=== PATIENT | male | born 1985 | race Caucasian/White ===

== ENCOUNTER 2024-08-04 14:00 | Emergency (ER) | payer MEDICAID, OTHER ==
[~2024-08-04] VITALS: Ht 180.3 cm; Wt 91.1 kg
[~2024-08-04 14:00] MED LIST: LURA120T
[2024-08-04 14:02] VITALS: BP 109/77; PULSE 100; TEMP 98.8; O2SAT 97
[2024-08-04 16:49] VITALS: RESP 18
== END 2024-08-04 16:51 | disposition home or self-care (01) ==
LOC: ER 14:01
DX: F15.10 Other stimulant abuse, uncomplicated (principal); Z88.8 Allergy status to other drugs, medicaments and biological substances; F12.90 Cannabis use, unspecified, uncomplicated; R53.1 Weakness
CPT/HCPCS: 99281

== ENCOUNTER 2024-08-05 11:55 | Emergency (ER) | payer MEDICAID, MEDICARE, OTHER ==
[~2024-08-05] VITALS: Ht 180.3 cm; Wt 90.0 kg
[2024-08-05 13:50] LABS: BILIRUBIN,URINE NEGATIVE (Neg); CLARITY,URINE SLIGHTLY CLOUDY (Clear); COLOR,URINE YELLOW (Yellow); GLUCOSE, URINE NEGATIVE (Neg); KETONES,URINE NEGATIVE (Neg); LEUKOCYTE ESTERASE ,URINE NEGATIVE (Neg); NITRITES, URINE NEGATIVE (Neg); OCCULT BLOOD,URINE NEGATIVE (Neg); PROTEIN,URINE NEGATIVE (Neg)
[2024-08-05 13:52] LABS: UA COLLECTION TYPE CLN CATCH MIDSTREAM
[2024-08-05 13:53] LABS: URINE AMPHETAMINE SCREEN POSITIVE (Neg); URINE BARBITUATE SCREEN NEGATIVE (Neg); URINE BENZODIAZEPINES SCREEN NEGATIVE (Neg); URINE CANNABINOID SCREEN POSITIVE (Neg); URINE COCAINE SCREEN NEGATIVE (Neg); URINE METHADONE SCREEN NEGATIVE (Neg); URINE OPIATE SCREEN NEGATIVE (Neg); URINE PHENCYCLIDINE SCREEN NEGATIVE (Neg)
[2024-08-05 14:00] LABS: RBC,URINE NONE SEEN /HPF (0-2); WBC,URINE 0-4 /HPF (0-4)
[2024-08-05 14:01] LABS: AMORPHOUS URATES 3+; BACTERIA,URINE FEW /HPF (Neg); CAL OXALATE CRYSTALS 1+ /HPF (NEGATIVE); MUCUS STRANDS NONE SEEN /LPF (Neg); SQUAMOUS EPITHELIAL CELL,UR FEW /LPF (FEW)
[2024-08-05 14:23] LABS: BASOPHILS % (AUTO) 0.4 % (0-1); EOSINOPHILS # (AUTO) 0.1 X10'3 (0-0.9); EOSINOPHILS % (AUTO) 1.8 % (0-6); HEMATOCRIT 41.4 % (42.0-52.0); HEMOGLOBIN 13.7 g/dl (14.0-17.9); LYMPHOCYTES # (AUTO) 1.8 X10'3 (1.1-4.8); LYMPHOCYTES % (AUTO) 25.5 % (21-51); MEAN CORPUSCULAR HEMOGLOBIN 26.4 PG (27.0-31.0); MEAN CORPUSCULAR HGB CONC 33.1 g/dL (33.0-36.5); MEAN PLATELET VOLUME 7.3 FL (7.4-10.4); MONOCYTES # (AUTO) 0.5 X10'3 (0-0.9); MONOCYTES % (AUTO) 6.8 % (2-12); NEUTROPHILS # (AUTO) 4.5 X10'3 (1.8-7.7); NEUTROPHILS % (AUTO) 65.5 % (42-75); PLATELET COUNT 264 X10'3 (140-440); RED BLOOD COUNT 5.17 X10'6 (4.70-6.10); RED CELL DISTRIBUTION WIDTH 16.6 % (11.5-14.5); WHITE BLOOD COUNT 6.9 X10'3 (4.5-11.0)
[2024-08-05 14:47] LABS: ALBUMIN 3.1 G/DL (3.4-5.0); ANION GAP 6 (8-16); BLOOD UREA NITROGEN 10 MG/DL (7-18); BUN/CREATININE RATIO 13.3 (10.0-20.0); CALCIUM 8.5 MG/DL (8.5-10.1); CHLORIDE 107 MMOL/L (99-107); CREATININE 0.75 MG/DL (0.60-1.10); ETHANOL < 10 MG/DL (<10); GLUCOSE 118 MG/DL (70-104); SODIUM 140 MMOL/L (135-145); THYROID STIMULATING HORMONE 0.18 ulU/ml (0.34-4.50); eCRCL 139 ML/MIN; eGFR > 90 ML/MIN
[2024-08-05 15:43] LABS: FREE T4 (FREE THYROXINE) 0.67 NG/DL (0.73-1.40)
[2024-08-06] MEDS: lurasidone 60mg tablet PO SCH (08:00)
[2024-08-06 17:38] VITALS: BP 121/78; PULSE 16; TEMP 98.8; O2SAT 97
[2024-08-06 19:13] VITALS: RESP 16
== END 2024-08-06 19:54 ==
LOC: ER 11:55
DX: F99 Mental disorder, not otherwise specified (principal); F31.9 Bipolar disorder, unspecified; R94.6 Abnormal results of thyroid function studies; F12.90 Cannabis use, unspecified, uncomplicated; Z88.8 Allergy status to other drugs, medicaments and biological substances; Z20.822 Contact with and (suspected) exposure to COVID-19
CPT/HCPCS: 36415; 80048; 80305; 81001; 84439; 84443; 85025; 87811; 99285; G0480; 80320

== ENCOUNTER 2024-08-22 17:46 | Inpatient (IN) | payer MEDICAID, MEDICARE ==
[~2024-08-22] VITALS: Ht 180.3 cm; Wt 93.4 kg
[2024-08-22] MEDS ORDERED: FLUO40CA10 PO (19:17)
[2024-08-22 19:20] LABS: BASOPHILS % (AUTO) 0.5 % (0-1); EOSINOPHILS # (AUTO) 0.2 X10'3 (0-0.9); EOSINOPHILS % (AUTO) 1.7 % (0-6); HEMOGLOBIN 15.1 g/dl (14.0-17.9); LYMPHOCYTES # (AUTO) 2.1 X10'3 (1.1-4.8); LYMPHOCYTES % (AUTO) 19.7 % (21-51); MEAN CORPUSCULAR HEMOGLOBIN 26.6 PG (27.0-31.0); MEAN CORPUSCULAR HGB CONC 33.5 g/dL (33.0-36.5); MEAN CORPUSCULAR VOLUME 79.3 FL (78-98); MEAN PLATELET VOLUME 7.3 FL (7.4-10.4); MONOCYTES # (AUTO) 0.6 X10'3 (0-0.9); NEUTROPHILS # (AUTO) 7.7 X10'3 (1.8-7.7); NEUTROPHILS % (AUTO) 72.1 % (42-75); PLATELET COUNT 316 X10'3 (140-440); RED BLOOD COUNT 5.67 X10'6 (4.70-6.10); RED CELL DISTRIBUTION WIDTH 17.6 % (11.5-14.5); WHITE BLOOD COUNT 10.7 X10'3 (4.5-11.0)
[2024-08-22 19:25] LABS: BILIRUBIN,URINE NEGATIVE (Neg); CLARITY,URINE CLEAR (Clear); COLOR,URINE YELLOW (Yellow); GLUCOSE, URINE NEGATIVE (Neg); KETONES,URINE NEGATIVE (Neg); LEUKOCYTE ESTERASE ,URINE NEGATIVE (Neg); NITRITES, URINE NEGATIVE (Neg); OCCULT BLOOD,URINE NEGATIVE (Neg); PROTEIN,URINE NEGATIVE (Neg); UROBILINOGEN,URINE 0.2 E.U/dL (0.2-1.0)
[2024-08-22 19:36] LABS: UA COLLECTION TYPE VOIDED
[2024-08-22 19:39] LABS: URINE AMPHETAMINE SCREEN NEGATIVE (Neg); URINE BARBITUATE SCREEN NEGATIVE (Neg); URINE BENZODIAZEPINES SCREEN NEGATIVE (Neg); URINE CANNABINOID SCREEN NEGATIVE (Neg); URINE COCAINE SCREEN NEGATIVE (Neg); URINE METHADONE SCREEN NEGATIVE (Neg); URINE OPIATE SCREEN NEGATIVE (Neg); URINE PHENCYCLIDINE SCREEN NEGATIVE (Neg)
[2024-08-22 19:42] LABS: ALBUMIN 3.5 G/DL (3.4-5.0); ANION GAP 9 (8-16); BLOOD UREA NITROGEN 13 MG/DL (7-18); BUN/CREATININE RATIO 12.6 (10.0-20.0); CALCIUM 8.9 MG/DL (8.5-10.1); CHLORIDE 106 MMOL/L (99-107); CREATININE 1.03 MG/DL (0.60-1.10); ETHANOL < 10 MG/DL (<10); GLUCOSE 120 MG/DL (70-104); POTASSIUM 3.7 MMOL/L (3.5-5.1); SODIUM 142 MMOL/L (135-145); THYROID STIMULATING HORMONE 1.36 ulU/ml (0.34-4.50); TOTAL CARBON DIOXIDE 27.4 MMOL/L (24-32); eCRCL 102 ML/MIN; eGFR 80 ML/MIN
[2024-08-22] MEDS: FLUoxetine 20mg capsule PO SCH (19:53)
[2024-08-23] MEDS ORDERED: loperamide 2mg capsule PO PRN (11:55)
[2024-08-23] MEDS ORDERED: acetaminophen 325mg tablet PO PRN ×2 (11:55)
[2024-08-23] MEDS ORDERED: magnesium hydroxide 30ml (MOM) UD suspension PO PRN (11:55)
[2024-08-23] MEDS: NICOTINE POLACRILEX 2 MG LOZENGE BC PRN (13:42)
[2024-08-23 19:00] VITALS: RESP 20; O2SAT 97
[2024-08-23 19:44] VITALS: BP 118/77; PULSE 74; RESP 20; TEMP 98.7
[2024-08-24 07:00] VITALS: RESP 16; O2SAT 97
[2024-08-24] MEDS: nicotine 21mg patch - 24 hr TD SCH (07:57)
[2024-08-24 08:00] VITALS: BP 114/70; PULSE 80; RESP 16; TEMP 98.1; O2SAT 97
[2024-08-24] MEDS ORDERED: hydrOXYzine 25 MG tablet PO PRN (08:40)
[2024-08-24 08:52] LABS: CHOL/HDL RATIO 3.5 (0.00-4.99); CHOLESTEROL 163 MG/DL (0-200); HDL CHOLESTEROL 46 MG/DL (35-60); LDL CHOLESTEROL 87 MG/DL (50-100); TRIGLYCERIDES 286 MG/DL (20-135)
[2024-08-24] MEDS: aripiprazole 10MG tablet PO SCH (10:16)
[2024-08-24 19:00] VITALS: RESP 16; O2SAT 96
[2024-08-24 20:32] VITALS: BP 115/73; PULSE 83; RESP 14; TEMP 97.6; O2SAT 97
[2024-08-24] MEDS: mag hydrox/Alum hydrox/simeth 30ml oral suspension PO PRN (20:40)
[2024-08-25 07:20] VITALS: BP 113/82; PULSE 73; RESP 16; TEMP 97.4; O2SAT 97
[2024-08-25] MEDS ORDERED: aripiprazole 10MG tablet PO SCH (08:00)
[2024-08-25] MEDS: pantoprazole 40mg Tablet.DR PO SCH (08:54)
[2024-08-25 09:06] VITALS: RESP 16; O2SAT 97
[2024-08-25 19:00] VITALS: RESP 18; O2SAT 97
[2024-08-25 20:00] VITALS: BP 120/76; PULSE 77; RESP 18; TEMP 97.9; O2SAT 97
[2024-08-26 07:00] VITALS: RESP 18; O2SAT 96
[2024-08-26 08:00] VITALS: BP 127/87; PULSE 77; RESP 18; TEMP 97.8; O2SAT 96
[2024-08-26 19:00] VITALS: RESP 18; O2SAT 97
[2024-08-26 19:36] VITALS: BP 115/74; PULSE 82; RESP 18; TEMP 98.2; O2SAT 97
[2024-08-27 07:30] VITALS: BP 116/78; PULSE 83; RESP 14; TEMP 97.6; O2SAT 97; O2SAT 98
[2024-08-27] MEDS: OMEGA-3/DHA/EPA/FISH OIL 1 EACH CAPSULE.DR PO SCH (07:47)
[2024-08-27] MEDS: LORazepam 1 MG tablet PO ONE (16:53)
[2024-08-27] MEDS: benztropine 1mg tablet PO ONE (16:53)
[2024-08-27 19:16] VITALS: RESP 18; O2SAT 98
[2024-08-27 20:00] VITALS: BP 117/81; PULSE 81; RESP 18; TEMP 98.6; O2SAT 98
[2024-08-28 07:00] VITALS: BP 119/86; PULSE 85; RESP 14; TEMP 98.1; O2SAT 96
[2024-08-28] MEDS: aripiprazole 5mg tablet PO SCH (07:47)
[2024-08-28] MEDS: benztropine 1mg tablet PO SCH (07:47)
[2024-08-28 19:00] VITALS: RESP 16; O2SAT 97
[2024-08-28 19:56] VITALS: BP 113/71; PULSE 80; RESP 16; TEMP 98.3; O2SAT 97
[2024-08-29 07:00] VITALS: BP 123/85; PULSE 83; RESP 16; TEMP 99.9; O2SAT 97
[2024-08-29 19:00] VITALS: RESP 16; O2SAT 97
[2024-08-29 20:00] VITALS: BP 111/73; PULSE 85; RESP 16; TEMP 98.7; O2SAT 97
[2024-08-30 07:00] VITALS: BP 113/80; PULSE 74; RESP 12; TEMP 98.1; O2SAT 96
[2024-08-30] MEDS: aripiprazole 5mg tablet PO SCH (07:08)
[2024-08-30 19:00] VITALS: RESP 16
[2024-08-30 20:00] VITALS: RESP 14
[2024-08-30] MEDS: carbamide peroxide 15ml bottle EACH EAR SCH (20:00)
[2024-08-31 07:00] VITALS: RESP 16; O2SAT 98
[2024-08-31 08:00] VITALS: BP 116/71; PULSE 72; RESP 16; TEMP 98.5; O2SAT 98
[2024-08-31 20:00] VITALS: BP 115/77; PULSE 85; RESP 18; TEMP 98.1; O2SAT 97
[2024-08-31 23:32] VITALS: RESP 18; O2SAT 97
[2024-09-01 07:00] VITALS: RESP 16; O2SAT 98
[2024-09-01 08:00] VITALS: BP 118/73; PULSE 84; RESP 16; TEMP 97.3; O2SAT 98
[2024-09-01] MEDS: aripiprazole 10MG tablet PO SCH (08:39)
[2024-09-01] MEDS: atomoxetine 40 MG capsule PO SCH (08:40)
[2024-09-01] MEDS ORDERED: ATOM40CA PO (14:56)
[2024-09-01] MEDS ORDERED: PANT40TA54 PO (14:56)
[2024-09-01] MEDS ORDERED: ARIP10TA87 PO (14:56)
[2024-09-01 19:05] VITALS: RESP 16
[2024-09-01 20:00] VITALS: BP 108/76; PULSE 84; RESP 16; TEMP 98.2; O2SAT 97
[2024-09-02 07:14] VITALS: RESP 16; O2SAT 98
[2024-09-02 08:00] VITALS: BP 122/84; PULSE 78; RESP 16; TEMP 97.1; O2SAT 97
[2024-09-02 18:52] VITALS: RESP 12
[2024-09-02 19:38] VITALS: BP 109/70; PULSE 90; RESP 16; TEMP 97.4; O2SAT 97
[2024-09-03 07:00] VITALS: RESP 12; O2SAT 97
[2024-09-03] MEDS: atomoxetine 40 MG capsule PO SCH (07:21)
[2024-09-03 08:00] VITALS: BP 119/77; PULSE 87; RESP 12; TEMP 97.1; O2SAT 97
[2024-09-03 19:13] VITALS: RESP 16
[2024-09-03 20:44] VITALS: BP 120/83; PULSE 95; RESP 18; TEMP 98.2; O2SAT 99
[2024-09-04 07:00] VITALS: RESP 12; O2SAT 97
[2024-09-04 08:00] VITALS: BP 118/86; PULSE 89; RESP 16; TEMP 97.4; O2SAT 97
[2024-09-04] MEDS ORDERED: ATOM40CA PO (09:09)
[2024-09-05 07:00] VITALS: BP 105/72; PULSE 100; RESP 16; TEMP 97.6; O2SAT 97
== END 2024-09-05 13:02 | DRG 885 ==
LOC: ER 08-23 07:17 → ED HOLD 08-23 10:30 → UNDOADMIN 08-23 10:30 → ADULT MH 08-23 11:46 → ED HOLD 08-23 11:46 → ADULT MH 08-23 14:58 → ED HOLD 08-23 14:58
PROVIDERS: ADMIT Psychiatry & Neurology Psychiatry; ATTEND Psychiatry & Neurology Psychiatry
PROC: GZHZZZZ Group Psychotherapy (ICD-10-PCS; principal; 2024-08-24)
DX: F31.4 Bipolar disorder, current episode depressed, severe, without psychotic features (principal); R45.851 Suicidal ideations; Z59.00 Homelessness unspecified; Z20.822 Contact with and (suspected) exposure to COVID-19; E78.1 Pure hyperglyceridemia; F15.10 Other stimulant abuse, uncomplicated; F41.9 Anxiety disorder, unspecified; R25.2 Cramp and spasm; K21.9 Gastro-esophageal reflux disease without esophagitis; Z79.899 Other long term (current) drug therapy; Z91.51 Personal history of suicidal behavior; Z88.8 Allergy status to other drugs, medicaments and biological substances
CPT/HCPCS: 36415; 71045; 80048; 80061; 80305; 80320; 81003; 84443; 85025; 87081; 87811; 99285

== ENCOUNTER 2024-09-12 10:52 | Emergency (ER) | payer MEDICARE, MEDICAID ==
[~2024-09-12] VITALS: Ht 180.3 cm; Wt 100.3 kg
[~2024-09-12 10:52] MED LIST changes: +ARIP10TA87 PO; +ATOM40CA PO; -LURA120T; +PANT40TA54 PO
[2024-09-12 11:12] VITALS: BP 126/81; PULSE 117; TEMP 97.3; O2SAT 96
[2024-09-12 13:34] VITALS: RESP 18
== END 2024-09-12 15:43 | disposition home or self-care (01) ==
LOC: ER 10:53
DX: J22 Unspecified acute lower respiratory infection (principal); R05.9 Cough, unspecified; F12.90 Cannabis use, unspecified, uncomplicated; Z88.8 Allergy status to other drugs, medicaments and biological substances; Z88.5 Allergy status to narcotic agent; Z59.00 Homelessness unspecified
CPT/HCPCS: 99282

== ENCOUNTER 2024-11-23 03:37 | Emergency (ER) | payer MEDICARE, MEDICAID ==
[~2024-11-23] VITALS: Ht 180.3 cm; Wt 112.3 kg
[~2024-11-23 03:37] MED LIST changes: -ARIP10TA87 PO; -ATOM40CA PO; +HYDR-3686 PO; +LISD40CA4 PO; +PANT-47 PO; -PANT40TA54 PO
[2024-11-23] MEDS: diazepam inj 5 MG/ML inj. IM ONE (04:08)
[2024-11-23] MEDS ORDERED: AZI25OT PO (04:30)
[2024-11-23 04:37] VITALS: BP 168/110; PULSE 115; TEMP 98.2; O2SAT 98
== END 2024-11-23 04:50 | disposition home or self-care (01) ==
LOC: ER 03:40
DX: R05.9 Cough, unspecified (principal); F31.9 Bipolar disorder, unspecified; F12.90 Cannabis use, unspecified, uncomplicated; Z88.8 Allergy status to other drugs, medicaments and biological substances
CPT/HCPCS: 96372; 99283; J3360

== ENCOUNTER 2025-01-09 23:02 | Emergency (ER) | payer MEDICARE, MEDICAID ==
[~2025-01-09] VITALS: Ht 180.3 cm; Wt 92.4 kg
[2025-01-09 23:05] VITALS: BP 140/95; PULSE 114; RESP 18; O2SAT 98
[2025-01-10 01:44] VITALS: TEMP 98.2
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
== END 2025-01-10 01:52 | disposition home or self-care (01) ==
LOC: ER 23:03
DX: L02.31 Cutaneous abscess of buttock (principal); F12.90 Cannabis use, unspecified, uncomplicated; F41.9 Anxiety disorder, unspecified; Z88.8 Allergy status to other drugs, medicaments and biological substances
CPT/HCPCS: 99281; A6402; Z7610; A6449

== ENCOUNTER 2025-01-21 21:35 | Emergency (ER) | payer MEDICARE, MEDICAID ==
[~2025-01-21] VITALS: Ht 182.9 cm; Wt 86.0 kg
[2025-01-21 21:37] VITALS: BP 103/71; PULSE 108; TEMP 99.1; O2SAT 97
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
[2025-01-21 21:59] VITALS: RESP 19
== END 2025-01-21 22:16 ==
LOC: ER 21:35
DX: Z00.8 Encounter for other general examination (principal); Z88.8 Allergy status to other drugs, medicaments and biological substances
CPT/HCPCS: 99283

== ENCOUNTER 2025-02-04 19:57 | Emergency (ER) | payer MEDICARE, MEDICAID | END 2025-02-04 20:10 | disposition left against medical advice (07) | LOC: ER 19:58 | DX: Z00.8 Encounter for other general examination (principal); Z53.21 Procedure and treatment not carried out due to patient leaving prior to being seen by health care provider; Z88.8 Allergy status to other drugs, medicaments and biological substances ==

== ENCOUNTER 2025-02-13 19:01 | Emergency (ER) | payer MEDICARE, MEDICAID | END 2025-02-13 20:51 | disposition left against medical advice (07) | LOC: ER 19:01 | DX: Z00.8 Encounter for other general examination (principal); Z88.8 Allergy status to other drugs, medicaments and biological substances; Z53.21 Procedure and treatment not carried out due to patient leaving prior to being seen by health care provider ==

== ENCOUNTER 2025-02-16 01:46 | Emergency (ER) | payer MEDICARE, MEDICAID ==
[~2025-02-16] VITALS: Ht 180.3 cm; Wt 86.8 kg
[2025-02-16 02:05] VITALS: BP 114/88; PULSE 49; TEMP 98; O2SAT 99
[2025-02-16 02:06] VITALS: RESP 12
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
== END 2025-02-16 02:48 | disposition left against medical advice (07) ==
LOC: ER 01:46
DX: T14.8XXA Other injury of unspecified body region, initial encounter (principal); X58.XXXA Exposure to other specified factors, initial encounter; Y93.89 Activity, other specified; Y92.89 Other specified places as the place of occurrence of the external cause; Y99.8 Other external cause status
CPT/HCPCS: 99281; 99282

== ENCOUNTER 2025-02-25 04:09 | Emergency (ER) | payer MEDICARE, MEDICAID ==
[~2025-02-25] VITALS: Ht 180.3 cm; Wt 84.1 kg
[2025-02-25 04:10] VITALS: BP 154/82; PULSE 101; RESP 18; TEMP 98.1; O2SAT 99
== END 2025-02-25 06:27 | disposition left against medical advice (07) ==
LOC: ER 04:09
DX: T14.8XXA Other injury of unspecified body region, initial encounter (principal); Z53.21 Procedure and treatment not carried out due to patient leaving prior to being seen by health care provider; Z88.8 Allergy status to other drugs, medicaments and biological substances; X58.XXXA Exposure to other specified factors, initial encounter; Y93.89 Activity, other specified; Y92.89 Other specified places as the place of occurrence of the external cause; Y99.8 Other external cause status

== ENCOUNTER 2025-02-26 13:40 | Emergency (ER) | payer MEDICARE, MEDICAID ==
[~2025-02-26] VITALS: Ht 177.8 cm; Wt 85.0 kg
[2025-02-26 13:42] VITALS: BP 132/91; PULSE 118; RESP 18; TEMP 97.5; O2SAT 98
== END 2025-02-26 15:05 | disposition left against medical advice (07) ==
LOC: ER 13:40
DX: T14.8XXA Other injury of unspecified body region, initial encounter (principal); Z53.21 Procedure and treatment not carried out due to patient leaving prior to being seen by health care provider; Z88.8 Allergy status to other drugs, medicaments and biological substances; X58.XXXA Exposure to other specified factors, initial encounter; Y93.89 Activity, other specified; Y92.89 Other specified places as the place of occurrence of the external cause; Y99.8 Other external cause status

== ENCOUNTER → 2025-02-28 | Emergency (ER) | payer MEDICARE, MEDICAID ==
[~2025-02-28] VITALS: Ht 182.9 cm; Wt 81.8 kg
--- NOTE | 2025-02-28 01:11 | Physician Documentation ---
History of Present Illness ~ Chief Complaint: Wound Re-Check Stated Complaint: EVALUATION Time Seen by MD: 01:08 Primary Medical Doctor: ROSAMARIA BRANHAM IN [facility] Patient presents to the emergency room for various sores on his body for which he believes are secondary to insect bites. Tetanus within 5 years?: Yes Medication Reconciliation Allergies: Coded Allergies: lurasidone (Verified Allergy, Unknown, LEGS LOCK UP, 02/26/25) haloperidol (Verified Adverse Reaction, Unknown, legs lock up, 02/26/25) risperidone (Verified Adverse Reaction, Unknown, legs lock up, 02/26/25) ziprasidone (Verified Adverse Reaction, Unknown, legs lock up, 02/26/25) Scheduled Lisdexamfetamine Dimesylate (Lisdexamfetamine Dimesylate), 1 CAP PO QAM, (Reported) Pantoprazole Sodium (PROTONIX tablet), 1 TAB PO DAILY, (Reported) Scheduled PRN Hydroxyzine Hcl* (Atarax*), 50 MG PO Q6H PRN for anxiety Past Medical History Past Medical History: *PSYCH*, Bipolar, Depression Past Surgical History: no surgical history Patient History: FH: diabetes mellitus Maternal grandmother FH: sleep apnea Maternal grandmother Alcohol Use: Occasionally Drug Use: marijuana Lives In: Homeless Review of Systems ROS All review of systems negative except as per [facility] Physical Exam Vital Signs: Weight: 81.820 Physical Exam General: Patient is awake, alert, mumbling out flies and security guards Head: Normocephalic and atraumatic. Eyes: Conjunctival injection noted. EOMI. PERRL. ENT: Mucous membranes moist. Chest: There is no accessory muscle use or retractions. Cardiac: Well-perfused Ambulating without difficulty Medical Decision Making Findings Patient presented to the emergency room with reports of multiple sores and insect bites. Patient has he had not feel comfortable kidney in his vitals with security guards sitting at bedside therefore decided to leave. I was unable to get a good look at any of his reported wounds in the patient eloped before I could Departure Disposition: 07 LEFT AWOL/ELOPED Impression: Primary Impression: Wound Referrals: NO PRIMARY CARE PROVIDER (PCP) Signature Scribe Signature: No scribe Attestation: The note accurately reflects work and decisions made by me.Martin Nelson MD 02/28/25 01:11 MARTIN NELSON MD 1, 2025 01:11
== END | disposition left against medical advice (07) ==
LOC: ER 00:37
DX: T14.8XXA Other injury of unspecified body region, initial encounter (principal); L98.9 Disorder of the skin and subcutaneous tissue, unspecified; F12.90 Cannabis use, unspecified, uncomplicated; F32.A Depression, unspecified; Z88.8 Allergy status to other drugs, medicaments and biological substances; Z79.899 Other long term (current) drug therapy; Z72.89 Other problems related to lifestyle; Z59.00 Homelessness unspecified; W57.XXXA Bitten or stung by nonvenomous insect and other nonvenomous arthropods, initial encounter; Y93.89 Activity, other specified; Y92.89 Other specified places as the place of occurrence of the external cause; Y99.8 Other external cause status
CPT/HCPCS: 99281; 99282

== ENCOUNTER 2025-03-04 22:39 | Emergency (ER) | payer MEDICARE, MEDICAID | END 2025-03-04 23:38 | disposition left against medical advice (07) | LOC: ER 22:40 | DX: Z00.00 Encounter for general adult medical examination without abnormal findings (principal); Z53.21 Procedure and treatment not carried out due to patient leaving prior to being seen by health care provider; Z88.8 Allergy status to other drugs, medicaments and biological substances ==

== ENCOUNTER 2025-04-11 14:09 | Emergency (ER) | payer MEDICARE, MEDICAID ==
[~2025-04-11] VITALS: Ht 180.3 cm; Wt 67.0 kg
[2025-04-11 14:12] VITALS: BP 127/85; PULSE 126; RESP 20; TEMP 98.6; O2SAT 96
[2025-04-11] MEDS ORDERED: SULF1TAB49 PO (15:19)
--- NOTE | 2025-04-11 15:20 | Physician Documentation ---
History of Present Illness ~ Chief Complaint: Abscess Stated Complaint: WOUND Time Seen by MD: 14:49 Primary Medical Doctor: ROSAMARIA BRANHAM IN HPI Patient is seen today with complaints of skin infections of his right lower leg superficially. Patient is not a very good historian. Patient admits to history of illicit drug use. Patient denies any chest pain or shortness of breath or fevers or chills or nausea, vomiting, diarrhea or abdominal pain. Patient has no other concern or complaint at this time Tetanus Within 5 Years: Yes Medication Reconciliation Allergies: Coded Allergies: lurasidone (Verified Allergy, Unknown, LEGS LOCK UP, 02/26/25) haloperidol (Verified Adverse Reaction, Unknown, legs lock up, 02/26/25) risperidone (Verified Adverse Reaction, Unknown, legs lock up, 02/26/25) ziprasidone (Verified Adverse Reaction, Unknown, legs lock up, 02/26/25) Scheduled Lisdexamfetamine Dimesylate (Lisdexamfetamine Dimesylate), 1 CAP PO QAM, (Reported) Pantoprazole Sodium (PROTONIX tablet), 1 TAB PO DAILY, (Reported) Scheduled PRN Hydroxyzine Hcl* (Atarax*), 50 MG PO Q6H PRN for anxiety Past Medical History Past Medical History: *PSYCH*, Bipolar, Depression Past Surgical History: no surgical history Patient History: FH: diabetes mellitus Maternal grandmother FH: sleep apnea Maternal grandmother Alcohol Use: Occasionally Drug Use: marijuana Lives In: Homeless Review of Systems Constitutional: Denies: chills, fever, weakness Eyes: Denies: pain, blurred vision ENT: Denies: ear pain, nose pain, throat pain, mouth pain Respiratory: Denies: cough, shortness of breath Cardiovascular: Denies: chest pain, palpitations Gastrointestinal: Denies: abdominal pain, nausea, vomiting Genitourinary: Denies: burning, dysuria Male Genitalia: Denies: penile discharge, testicular pain Neurological: Denies: headache, dizziness Musculoskeletal: Denies: pain, swelling Integumentary: Denies: rash, lesions Allergic/Immunologic: Denies: hives, itching Hematologic/Lymphatic: Denies: no symptoms reported Psychiatric: Denies: depression, anxiety Physical Exam Vital Signs: Temperature: 98.6, Source: Temporal, Heart Rate: 126, Respiratory Rate: 20, BP: 127/85, Pulse Oximetry: 96, Weight: 67.000 Oxygen Flow Rate: 0 Physical Exam General: Awake and Alert, no acute distress. HEENT: Conjunctiva pink, Sclera clear, Mucus Membranes moist. Neck: Supple without masses and tenderness. Resp: Unlabored. Lungs clear to auscultation bilaterally. Heart: Regular Rate and rhythm, normal S1 and S2 without murmur, rub or gallop. Extremities: No cyanosis,clubbing or edema. Skin: Patient on exam does have about five pustules with surrounding erythema and induration consistent with abscess with cellulitis of his right lower extremity anteriorly each measuring approximately 1 cm in diameter. No purulent drainage at this time. Progress Results/Orders Results/Orders Vital Signs 04/11/25 14:12 Temp 98.6 Pulse 126 Resp 20 B/P (MAP) 127/85 Pulse Ox 96 O2 Flow Rate 0 Medical Decision Making Findings Patient is seen today with complaints of skin infections of his right lower leg superficially. Patient is not a very good historian. Patient admits to history of illicit drug use. Patient denies any chest pain or shortness of breath or fevers or chills or nausea, vomiting, diarrhea or abdominal pain. Patient has no other concern or complaint at this time Patient was given prescription of Bactrim DS one tab twice a day sent to patient's pharmacy [facility] on [address] to be taken for 10 days. Patient will follow up with primary care in 2-5 days if no better as needed sooner. Return t o ED with any worsening, concerning or changing symptoms Departure Disposition: 01 HOME / SELF CARE / HOMELESS Impression: Primary Impression: Abscess Additional Impression: Cellulitis Qualified Codes: L03.115 - Cellulitis of right lower limb Condition: Stable Discharge Instructions: Abscess, Care After Additional Instructions: Patient was given prescription of Bactrim DS one tab twice a day sent to patient's pharmacy [facility] on [address] to be taken for 10 days. Patient will follow up with primary care in 2-5 days if no better as needed sooner. Return to ED with any worsening, concerning or changing symptoms Referrals: NO PRIMARY CARE PROVIDER (PCP) Prescriptions Sulfamethoxazole/Trimethoprim (Bactrim Ds Tablet) 800 Mg-160 Mg Tablet 1 TAB PO Q12H for 10 Days, #20 TAB Prov: ARLETTE MALLORY 04/11/25 Signature Scribe Signature: No scribe Attestation: No scribe ARLETTE MALLORY PAC Apr 11, 2025 15:20
[2025-04-12] MEDS ORDERED: MUPI22OI30 TOP (05:16)
[2025-04-12] MEDS ORDERED: SULF1TAB49 PO (07:10)
== END 2025-04-11 15:51 | disposition home or self-care (01) ==
LOC: ER 14:10
DX: L02.415 Cutaneous abscess of right lower limb (principal); L03.115 Cellulitis of right lower limb; F31.9 Bipolar disorder, unspecified; F12.90 Cannabis use, unspecified, uncomplicated; Z88.8 Allergy status to other drugs, medicaments and biological substances; Z79.899 Other long term (current) drug therapy; Z59.00 Homelessness unspecified; Z72.89 Other problems related to lifestyle
CPT/HCPCS: 99283

== ENCOUNTER 2025-04-12 05:02 | Emergency (ER) | payer MEDICARE, MEDICAID ==
[~2025-04-12] VITALS: Ht 180.3 cm; Wt 79.5 kg
[~2025-04-12 05:02] MED LIST changes: +SULF1TAB49 PO
[2025-04-12 05:09] VITALS: BP 124/92; PULSE 97; RESP 19; TEMP 97.9; O2SAT 98
[2025-04-12] MEDS ORDERED: MUPI22OI30 TOP (05:16)
--- NOTE | 2025-04-12 05:16 | Physician Documentation ---
History of Present Illness ~ Chief Complaint: Wound Stated Complaint: WOUND CHECK Time Seen by MD: 05:13 Primary Medical Doctor: ROSAMARIA BRANHAM IN [facility] Patient presents to the emergency room for wounds that he states has been going on for the past 5 minutes secondary to spider bites he states he saw his primary care yesterday who gave him prescriptions but he is prescriptions not be available until 10:00 a.m. (less than 5 hours from now). No fevers. Tetanus within 5 years?: Yes Medication Reconciliation Allergies: Coded Allergies: lurasidone (Verified Allergy, Unknown, LEGS LOCK UP, 02/26/25) haloperidol (Verified Adverse Reaction, Unknown, legs lock up, 02/26/25) risperidone (Verified Adverse Reaction, Unknown, legs lock up, 02/26/25) ziprasidone (Verified Adverse Reaction, Unknown, legs lock up, 02/26/25) Scheduled Lisdexamfetamine Dimesylate (Lisdexamfetamine Dimesylate), 1 CAP PO QAM, (Reported) Pantoprazole Sodium (PROTONIX tablet), 1 TAB PO DAILY, (Reported) Sulfamethoxazole/Trimethoprim (Bactrim Ds Tablet), 1 TAB PO Q12H Scheduled PRN Hydroxyzine Hcl* (Atarax*), 50 MG PO Q6H PRN for anxiety Past Medical History Past Medical History: *PSYCH*, Bipolar, Depression Past Surgical History: no surgical history Patient History: FH: diabetes mellitus Maternal grandmother FH: sleep apnea Maternal grandmother Alcohol Use: Occasionally Drug Use: marijuana Lives In: Homeless Review of Systems ROS All review of systems negative except as per [facility] Physical Exam Vital Signs: Temperature: 97.9, Source: Temporal, Heart Rate: 97, Respiratory Rate: 19, BP: 124/92, Pulse Oximetry: 98, Weight: 79.550 Oxygen Flow Rate: 0 Physical Exam General: Patient is awake, alert, oriented x4 in no acute distress Head: Normocephalic and atraumatic. Eyes: Conjunctival normal. EOMI. PERRL. ENT: Mucous membranes moist. Neck: Supple, trachea is midline. Chest: Clear to auscultation bilaterally without rales, rhonchi, or wheezes. The re is no accessory muscle use or retractions. Cardiac: RRR without murmurs, gallops, or rubs. Skin: Patient has multiple wounds in various time frames located in his lower extremities and buttocks none of which appear infected and negative fluctuance. Progress Results/Orders Results/Orders Vital Signs 04/12/25 05:09 Temp 97.9 Pulse 97 Resp 19 B/P (MAP) 124/92 Pulse Ox 98 O2 Flow Rate 0 Medical Decision Making Findings Patient has multiple scabs in his lower extremities but none of which appear infected. He had not feel he requires systemic antibiotics. He is working with his primary care regarding his believed spider bites. I do not feel he is suffering from a medical emergency. That has vital signs are stable and no objective evidence of active infection. Departure Disposition: HOME / SELF CARE / HOMELESS Impression: Primary Impression: Wound Condition: Stable Discharge Instructions: Spider Bite, [id number] Referrals: NO PRIMARY CARE PROVIDER (PCP) Prescriptions Mupirocin* (Bactroban*) 22 Gm Tube 1 APPLIC TOP Q8H for 7 Days, #22 GM apply to affected area(s) Prov: MARTIN NELSON MD 04/12/25 Education Educated: Patient Educated regarding: diagnosis, treatment, need for follow up Signature Scribe Signature: No scribe Attestation: The note accurately reflects work and decisions made by me.Martin Nelson MD 04/12/25 05:16 MARTIN NELSON MD Apr 12, 2025 05:16
[2025-04-12] MEDS ORDERED: SULF1TAB49 PO (07:10)
== END 2025-04-12 05:36 | disposition home or self-care (01) ==
LOC: ER 05:02
DX: S80.922A Unspecified superficial injury of left lower leg, initial encounter (principal); S80.921A Unspecified superficial injury of right lower leg, initial encounter; F31.9 Bipolar disorder, unspecified; Z88.8 Allergy status to other drugs, medicaments and biological substances; W57.XXXA Bitten or stung by nonvenomous insect and other nonvenomous arthropods, initial encounter; Y93.89 Activity, other specified; Y92.89 Other specified places as the place of occurrence of the external cause; Y99.8 Other external cause status
CPT/HCPCS: 99283

== ENCOUNTER 2025-04-12 06:54 | Emergency (ER) | payer MEDICARE, MEDICAID ==
[~2025-04-12] VITALS: Ht 180.3 cm; Wt 80.8 kg
[~2025-04-12 06:54] MED LIST changes: +MUPI22OI30 TOP
[2025-04-12 06:57] VITALS: BP 135/97; PULSE 87; RESP 16; TEMP 98; O2SAT 98
--- NOTE | 2025-04-12 07:05 | Physician Documentation ---
History of Present Illness ~ Chief Complaint: Wound Stated Complaint: WOUND CHECK Time Seen by MD: 07:04 Primary Medical Doctor: [facility] Source: patient Mode of Arrival: Ambulatory Exam Limitations: no limitations HPI Chief Complaint: Skin lesions Caveat: None Independent Historians: None History of Present Illness: Patient is a 39-year-old man who is homeless and comes in complaining of multiple lesions all over his body for over five months. They often get infected. Patient states that they itch. Patient states that he has had to have them drained and has had antibiotics. Patient denies any fever. Review of systems: All systems were reviewed and are negative except for what is indicated in the history of present illness. Past Medical History: None Past Surgical History: None Social History: Homeless, methamphetamine use Medications: Reviewed as documented Nursing Notes Allergies: Reviewed as documented in Nursing Notes Medication Reconciliation Allergies: Coded Allergies: lurasidone (Verified Allergy, Unknown, LEGS LOCK UP, 04/12/25) haloperidol (Verified Adverse Reaction, Unknown, legs lock up, 04/12/25) risperidone (Verified Adverse Reaction, Unknown, legs lock up, 04/12/25) ziprasidone (Verified Adverse Reaction, Unknown, legs lock up, 04/12/25) Scheduled Lisdexamfetamine Dimesylate (Lisdexamfetamine Dimesylate), 1 CAP PO QAM, (Reported) Mupirocin* (Bactroban*), 1 APPLIC TOP Q8H Pantoprazole Sodium (PROTONIX tablet), 1 TAB PO DAILY, (Reported) Sulfamethoxazole/Trimethoprim (Bactrim Ds Tablet), 1 TAB PO Q12H Sulfamethoxazole/Trimethoprim (Bactrim Ds Tablet), 1 TAB PO Q12H Scheduled PRN Hydroxyzine Hcl* (Atarax*), 50 MG PO Q6H PRN for anxiety Past Medical History Past Medical History: *PSYCH*, Bipolar, Depression Past Surgical History: no surgical history Patient History: FH: diabetes mellitus Maternal grandmother FH: sleep apnea Maternal grandmother Alcohol Use: Occasionally Drug Use: marijuana Lives In: Homeless Review of Systems All Other Systems at this time: Reviewed and Negative ROS Patient denies any other acute symptoms other than above. All other systems are negative Physical Exam Vital Signs: RN Vital Signs have been reviewed: Yes, Temperature: 98.0, Source: Oral, Heart Rate: 87, Respiratory Rate: 16, BP: 135/97, Pulse Oximetry: 98, Weight: 80.750 Oxygen Flow Rate: 0 Pulse Oximetry Reflects: adequate oxygenation Physical Exam General Appearance: No distress, poor hygiene, disheveled HEENT: Normal OP, moist oral mucosa, PERRL, EOMI Neck: supple, normal ROM, trachea midline Pulmonary: No respiratory distress, CTA, BS equal Cardiac: RRR, no murmur, rub or gallop, Extremities: normal ROM, no swelling, non-tender, multiple lesions with eschars that are scabbed over and other lesions on the legs that have some surrounding erythema. No abscesses identified Skin: intact, dry, warm, no rashes, multiple skin lesions over the torso and extremities, no abscesses identified Neuro: AAOx3, speech is clear Psych: normal affect, very poor contact, no apparent hallucination, normal speec h Progress Results/Orders Results/Orders Vital Signs 04/12/25 06:57 Temp 98.0 Pulse 87 Resp 16 B/P (MAP) 135/97 Pulse Ox 98 O2 Flow Rate 0 Medical Decision Making Findings Differential diagnosis includes but is not limited to: Cellulitis, abscess, methamphetamine use Emergency department course/medical decision-making: Patient has many skin lesions over the extremities and torso. A few of them on the lower legs appear infected consistent with cellulitis. No abscesses identified. Most of the lesions are scabbed over without signs of infection. Patient will be given a prescription for Bactrim. Patient is instructed that the lesions are from methamphetamine use however the he does not believe me. Patient is stable for discharge. 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 THE ANTIBIOTICS WILL HELP WITH THE INFECTED LESIONS BUT NOT THE LESIONS THEMSELVES. YOU DO NOT NEED WOUND CARE BEYOND SOAP AND WATER AND KEEPING THE LESIONS CLEAN AND DRY. Prescriptions Sulfamethoxazole/Trimethoprim (Bactrim Ds Tablet) 800 Mg-160 Mg Tablet 1 TAB PO Q12H for 10 Days, #20 TAB Prov: CELESTINE JOHN MD 04/12/25 Education Educated: Patient Educated regarding: diagnosis, treatment, need for follow up Signature Scribe Signature: No scribe Attestation: No scribe ALVARO,CELESTINE R MD Apr 12, 2025 07:05
[2025-04-12] MEDS ORDERED: SULF1TAB49 PO (07:10)
== END 2025-04-12 07:15 | disposition home or self-care (01) ==
LOC: ER 06:54
DX: L98.9 Disorder of the skin and subcutaneous tissue, unspecified (principal); Z88.8 Allergy status to other drugs, medicaments and biological substances; F15.90 Other stimulant use, unspecified, uncomplicated
CPT/HCPCS: 99283